=== PATIENT | female | born 1995 | race Caucasian/White ===

== ENCOUNTER 2017-09-01 21:26 | Emergency (ER) | payer SELFPAY ==
[~2017-09-01] VITALS: Ht 162.6 cm; Wt 88.9 kg
[2017-09-01 21:29] VITALS: Ht 162.6 cm; Wt 88.9 kg
[2017-09-01 23:24] LABS: BASOPHIL % 0.6 % (0-2); PLATELET COUNT 180 x10^3mcL (130-400); RED CELL DISTRIBUTION WIDTH 13.2 % (11.5-14.5)
[2017-09-01 23:43] LABS: CALCIUM 8.8 mg/dL (8.5-10.1); CARBON DIOXIDE 29.5 mmol/L (21-32); CHLORIDE SERUM 105 mmol/L (98-107); CREATININE SERUM 0.6 mg/dL (0.6-1.0); GFR1 > 60 mL/min; GLUCOSE SERUM 88 mg/dL (74-106); POTASSIUM SERUM 3.8 mmol/L (3.5-5.1); SODIUM SERUM 143 mmol/L (136-145)
[2017-09-01 23:56] LABS: ALBUMIN 4.2 g/dL (3.4-5.0); ALKALINE PHOSPHATASE 74 U/L (46-116); ALT/SGPT 26 U/L (14-59); AMYLASE 46 U/L (25-115); AST/SGOT 19 U/L (15-37); BILIRUBIN TOTAL 0.3 mg/dL (0.20-1.00); LIPASE 138 IU/L (73-393); TOTAL PROTEIN, SERUM 8.1 g/dL (6.4-8.2)
[2017-09-02 00:36] VITALS: BP 112/68
== END 2017-09-02 00:36 | disposition home or self-care (01) ==
LOC: ED 21:26
PROVIDERS: Emergency Medicine
DX: R10.13 Epigastric pain (principal); G44.209 Tension-type headache, unspecified, not intractable; R10.32 Left lower quadrant pain; R10.31 Right lower quadrant pain; R11.0 Nausea
CPT/HCPCS: 36415; 83880; J1885

== ENCOUNTER 2018-01-12 22:50 | Emergency (ER) | payer SELFPAY ==
[~2018-01-12] VITALS: Ht 162.6 cm; Wt 93.4 kg
[2018-01-12 22:53] VITALS: Ht 162.6 cm; Wt 93.4 kg
[2018-01-12 23:42] VITALS: BP 121/58
== END 2018-01-12 23:42 | disposition home or self-care (01) ==
LOC: ED 22:50
DX: O26.891 Other specified pregnancy related conditions, first trimester (principal); M54.5 Low back pain; Z3A.01 Less than 8 weeks gestation of pregnancy

== ENCOUNTER 2018-01-24 15:05 | Emergency (ER) | payer MEDICAID ==
[~2018-01-24] VITALS: Ht 162.6 cm; Wt 91.6 kg
[2018-01-24 15:10] VITALS: Ht 162.6 cm; Wt 91.6 kg
[2018-01-24 15:30] LABS: microscopic required? NO
[2018-01-24 15:45] LABS: UA SPECIFIC GRAVITY 1.015 (1.005-1.035); urine erythrocyte NEGATIVE (NEGATIVE)
[2018-01-24 15:46] LABS: BASOPHIL % 0.4 % (0-2); PLATELET COUNT 185 x10^3mcL (130-400)
[2018-01-24 15:51] LABS: CALCIUM 9.1 mg/dL (8.5-10.1); CARBON DIOXIDE 25.4 mmol/L (21-32); CHLORIDE SERUM 102 mmol/L (98-107); CREATININE SERUM 0.6 mg/dL (0.6-1.0); GFR1 > 60 mL/min; GLUCOSE SERUM 79 mg/dL (74-106); POTASSIUM SERUM 3.9 mmol/L (3.5-5.1); SODIUM SERUM 137 mmol/L (136-145)
[2018-01-24 15:57] LABS: ALBUMIN 3.8 g/dL (3.4-5.0); ALKALINE PHOSPHATASE 56 U/L (46-116); ALT/SGPT 39 U/L (14-59); AST/SGOT 19 U/L (15-37); BILIRUBIN TOTAL 0.2 mg/dL (0.20-1.00); LIPASE 93 IU/L (73-393); TOTAL PROTEIN, SERUM 7.7 g/dL (6.4-8.2)
[2018-01-24 16:30] VITALS: BP 112/59
== END 2018-01-24 16:30 | disposition home or self-care (01) ==
LOC: ED 15:05
PROVIDERS: Emergency Medicine
DX: O26.891 Other specified pregnancy related conditions, first trimester (principal); R10.30 Lower abdominal pain, unspecified; Z3A.01 Less than 8 weeks gestation of pregnancy
CPT/HCPCS: 36415

== ENCOUNTER 2018-02-09 13:10 | Emergency (ER) | payer MEDICAID ==
[~2018-02-09] VITALS: Ht 162.6 cm; Wt 91.2 kg
[2018-02-09 13:53] VITALS: BP 102/51; Ht 162.6 cm; Wt 91.2 kg
== END 2018-02-09 16:00 | disposition left against medical advice (07) ==
LOC: ED 13:10
DX: Z53.21 Procedure and treatment not carried out due to patient leaving prior to being seen by health care provider (principal)

== ENCOUNTER 2018-04-01 10:30 | Emergency (ER) | payer SELFPAY ==
[~2018-04-01] VITALS: Ht 162.6 cm; Wt 88.5 kg
[2018-04-01 10:36] VITALS: BP 116/48; Ht 162.6 cm; Wt 88.5 kg
== END 2018-04-01 11:46 | disposition left against medical advice (07) ==
LOC: ED 10:30
DX: Z53.21 Procedure and treatment not carried out due to patient leaving prior to being seen by health care provider (principal)